=== PATIENT | male | born 1975 | race African-American/Black ===

== ENCOUNTER 2020-05-06 15:18 | Inpatient (IN) | payer BC, OTHER ==
[~2020-05-06 15:18] MED LIST: Iopamidol-370 76% 500 ML 1 ML ONE
[2020-05-06 16:15] LABS: #Eosinphils 0.1 thou/uL (0.0-0.7); #Lymphocytes 0.7 thou/uL (1.20-3.40); #Monocytes 0.6 thou/uL (0.11-0.59); %Basophils 0.1 % (0.0-1.0); %Eosinophils 0.9 % (0.0-10.0); %Lymphocytes 7.3 % (21.0-51.0); %Monocytes 6.2 % (0.0-10.0); %Neutrophils 85.5 % (42.0-75.0); Hemoglobin 14.6 g/dL (14.0-18.0); Mean Corpuscular HGB CONC 32.2 g/dL (32.0-36.0); Mean Corpuscular Hemoglobin 28.2 pg (27.0-31.0); Mean Corpuscular Volume 87.7 fL (78.0-98.0); Mean Platelet Volume 8.5 fL (7.4-10.4); Platelet Count 255 thou/uL (130-400); Red Blood Cell (RBC) Count 5.18 mill/uL (4.70-6.10); White Blood Cell (WBC) Count 9.4 thou/uL (4.8-10.8)
[2020-05-06] MEDS ORDERED: Ondansetron PF 4 MG/2 ML Vial ONE (16:29)
[2020-05-06] MEDS ORDERED: Ketorolac Tromethamine 30 MG/ML VIAL ONE (16:29)
[2020-05-06 16:38] LABS: ALT (SGPT) 46 U/L (8-55); AST (SGOT) 35 U/L (5-34); Alkaline Phosphatase 96 U/L (40-110); Anion Gap 17 mmol/L (10-20); BUN (Urea Nitrogen) 10 mg/dL (8.9-20.6); Bilirubin, Total 0.4 mg/dL (0.2-1.2); Calc. Creatinine Clearance 0 mL/min (70-130); Calcium 9.6 mg/dL (7.8-10.44); Carbon Dioxide 23 mmol/L (22-29); Chloride 100 mmol/L (98-107); Estimated GFR-MDRD 80; Globulin 4.4 g/dL (2.4-3.5); Glucose 110 mg/dL (70-105); Potassium 4.3 mmol/L (3.5-5.1); Protein, Total 8.4 g/dL (6.0-8.3); Sodium 136 mmol/L (136-145)
[2020-05-06] MEDS ORDERED: Metoclopramide HCl 10 MG/2 ML VIAL ONE (18:25)
[2020-05-06] MEDS ORDERED: diphenhydrAMINE 50 MG/ML VIAL ONE (18:25)
[2020-05-06] MEDS ORDERED: cefTRIAXone\\ROCEPHIN 2 GM VIAL ONE (18:44)
[2020-05-06] MEDS ORDERED: Azithromycin 500 MG VIAL ONE (18:44)
[2020-05-06] MEDS ORDERED: Acetaminophen 500 MG TAB ONE ×2 (18:44→18:49)
--- NOTE | 2020-05-06 19:38 | CT ---
CT ANGIO OF CHEST PERFORMED WITH INTRAVENOUS CONTRAST ENHANCEMENT WITH 3D RECONSTRUCTIONS: History: Cough, bronchitis, negative Covid test on Wednesday. FINDINGS: There is an area of moderate consolidation in the left lower lobe. There is also a small infiltrate w ithin the right lower lobe. These changes are not typical for Covid and could just represent more of a bacterial process. The thoracic aorta is normal in caliber. There is suboptimal pulmonary artery opacification. I do not see any signs of any central pulmonary embolus. Smaller peripheral emboli would be difficult to excl ude. Visualized liver parenchyma shows hypodensities. It is difficult to characterize but possibly cysts. One of the larger areas is in the left lobe and does have cyst numbers. The adrenal glands appear sae ewhat hyperplastic. Visualized kidneys are unremarkable. IMPRESSION: 1. No CT evidence for pulmonary embolus. 2. Fairly extensive area of left lower lobe pneumonia with some lesser changes in the right lower lob e. POS: [facility]
[2020-05-06] MEDS ORDERED: Bisacodyl 10 MG SUPP PR PRN (22:41)
[2020-05-06] MEDS ORDERED: Senokot S 8.6-50 MG TAB PO PRN (22:41)
[2020-05-06] MEDS ORDERED: Albuterol 200 PUFF (6.7GM INHALER) INH PRN (22:41)
[2020-05-06] MEDS ORDERED: Guaifenesin DM 100-10/5 ML UDCUP PO PRN (22:41)
[2020-05-06] MEDS ORDERED: Calcium Carbonate 500 MG ChewTAB PO PRN (22:41)
[2020-05-06] MEDS ORDERED: Ondansetron PF 4 MG/2 ML Vial IVP PRN (22:41)
[2020-05-06] MEDS ORDERED: Azithromycin 500 MG in Sodium Chloride 0.9% 250 ML 250 ML IVPB SCH (22:45)
--- NOTE | 2020-05-06 23:15 | HP ---
REASON FOR ADMISSION: Pneumonia, possible COVID. HISTORY OF PRESENTING ILLNESS: The patient gives history of fever, which started on . He had a sore throat and body aches. The patient in fact had come to ER three times once on , then , and now again. He has had a throat swab for strep, which was negative. Flu antigens were negative, and a COVID test done on the was negative as well. On the , he was given a prescription for starting amoxicillin, but the patient has not initiated on that. He has cough with expectoration of bloody sputum. He says his sputum is red and not of any other color. He has mild shortness of breath on exertion. No obvious exposures for COVID in the immediate family or friends as far as he knows. He is a delivery truck driver heavy. PAST MEDICAL AND SURGICAL HISTORY: Hypertension, obesity, GERD, and dyslipidemia. No prior surgical history. CURRENT MEDICATIONS: The patient is on: 1. Metoprolol with hydrochlorothiazide 25/12.5 mg daily. 2. Norvasc 5 mg daily. ALLERGIES: NO KNOWN DRUG ALLERGIES. PERSONAL HISTORY: Smokes cigars one a day. Drinks alcohol on the weekends. No street drugs. Lives with his . Works as a delivery truck driver heavy. FAMILY HISTORY: Father in his 50s from diabetes and its complications. Mother is alive. CODE STATUS: Full. Power of admitted attorneys is his . REVIEW OF SYSTEMS: CONSTITUTIONAL: Negative for weight loss or gain, ability to conduct usual activities. SKIN: Negative for rash, itching. EYES: Negative for double vision, pain. ENT/MOUTH: Negative for nose bleeding, neck stiffness, pain, tenderness. CARDIOVASCULAR: Negative for palpitations, dyspnea on exertion, orthopnea. RESPIRATORY: Negative for shortness of breath, wheezing, cough, hemoptysis, fever or night sweats. GASTROINTESTINAL: Negative for poor appetite, abdominal pain, heartburn, nausea , vomiting, constipation, or diarrhea. GENITOURINARY: Negative for urgency, frequency, dysuria, nocturia. MUSCULOSKELETAL: Negative for pain, swelling. NEUROLOGIC/PSYCHIATRIC: Negative for anxiety, depression. ALLERGY/IMMUNOLOGIC: Negative for skin rash, bleeding tendency. PHYSICAL EXAMINATION: GENERAL: The patient is a 44-year-old male, who is currently not in any acute distress. VITAL SIGNS: Blood pressure 146/90, pulse 110 per minute, respiratory rate 18 per minute, temperature 102.9 degrees Fahrenheit, and saturating 97% on room air. NECK: Supple. No elevated JVD. HEENT: Eyes; extraocular muscles intact. Pupils reacting to light. Oral cavity, mucous membranes are moist. No exudates or congestion. CARDIOVASCULAR SYSTEM: S1 and S2 heard. Regular rhythm. RESPIRATORY: Air entry 1+ bilateral. Scattered rhonchi plus. ABDOMEN: Soft. Bowel sounds heard. No tenderness, rigidity, or guarding. EXTREMITIES: No peripheral edema or calf tenderness. VASCULAR SYSTEM: Peripheral pulses 1+ bilateral. No ischemic ulcerations or gangrene. CENTRAL NERVOUS SYSTEM: No gross focal deficits noted. The patient is alert, awake, and oriented well. PSYCHIATRIC SYSTEM: The patient's mood is euthymic. No hallucinations or delusions. LABORATORY DATA: CT of angio chest done shows no evidence of PE. There is extensive left lower lobe pneumonia. CRP 27, serum glucose 110, lactic acid 1.2 , BUN 10, creatinine 1.1. Albumin is 4. Electrolytes stable. White count of 9, hemoglobin and hematocrit of 14 and 45, platelet count 255, with 85% neutrophils , 7% lymphocytes. CLINICAL IMPRESSION AND PLAN: The patient will be admitted to medical floor for pneumonia, possible COVID. The patient has history of hypertension and is obese as well. He likely might have underlying obstructive sleep apnea, which has not been tested so far. He has been initiated on Zithromax and ceftriaxone, we will continue the same. A COVID-19 PCR has been obtained in the ER, we will follow up on the results. We will continue on his home dose of Lopressor and Norvasc. Albuterol nebulizer q.6 hourly p.r.n. He will be on airborne and droplet precautions. We will continue to closely monitor him on medical floor. Pulmonology consultation with Dr. Maurizio Liang will be obtained. Job ID: [id number] MTDD
[2020-05-07] MEDS: Acetaminophen 325 MG TAB PO PRN ×3 (00:18→18:19)
[2020-05-07] MEDS: Ibuprofen 200 MG TAB PO PRN ×3 (02:26→22:51)
[2020-05-07 04:08] VITALS: BMI 36.3
[2020-05-07 05:57] LABS: #Eosinphils 0.1 thou/uL (0.0-0.7); #Lymphocytes 1.2 thou/uL (1.20-3.40); #Monocytes 0.8 thou/uL (0.11-0.59); #Neutrophils 8.7 thou/uL (1.40-6.50); %Basophils 0.2 % (0.0-1.0); %Eosinophils 0.5 % (0.0-10.0); %Lymphocytes 11.1 % (21.0-51.0); %Monocytes 7.3 % (0.0-10.0); Hemoglobin 12.5 g/dL (14.0-18.0); Mean Corpuscular Hemoglobin 27.5 pg (27.0-31.0); Mean Platelet Volume 8.7 fL (7.4-10.4); Platelet Count 252 thou/uL (130-400); Red Blood Cell (RBC) Count 4.55 mill/uL (4.70-6.10); White Blood Cell (WBC) Count 10.8 thou/uL (4.8-10.8)
[2020-05-07 06:14] LABS: Anion Gap 13 mmol/L (10-20); BUN (Urea Nitrogen) 11 mg/dL (8.9-20.6); Calc. Creatinine Clearance 154 mL/min (70-130); Calcium 8.6 mg/dL (7.8-10.44); Carbon Dioxide 24 mmol/L (22-29); Chloride 104 mmol/L (98-107); Estimated GFR-MDRD Greater than 90; Glucose 117 mg/dL (70-105); Potassium 3.9 mmol/L (3.5-5.1); Sodium 137 mmol/L (136-145)
[2020-05-07] MEDS: Metoprolol Tartrate 25 MG TAB PO SCH ×2 (08:53→19:49)
[2020-05-07] MEDS: Enoxaparin Sodium 40 MG/0.4 ML SYRINGE SC SCH (08:53)
[2020-05-07] MEDS ORDERED: Amlodipine 5 MG TAB PO SCH (09:00)
[2020-05-07] MEDS ORDERED: Prevnar 13-Val Conj/PF 0.5 ML SYRINGE IM ONE (09:00)
[2020-05-07 13:50] LABS: SARS-CoV-2 MS2 Positive; SARS-CoV-2 N Gene Negative; SARS-CoV-2 S Gene Negative; SARS-CoV-2 orf1ab Negative
[2020-05-07] MEDS ORDERED: cefTRIAXone\\ROCEPHIN 1 GM in Sodium Chloride 0.9% 100 ML IVPB SCH (20:00)
--- NOTE | 2020-05-07 20:04 | CON ---
DATE OF CONSULTATION: 05/07/2020 CONSULTING PHYSICIAN: Dr. Nettles. REASON FOR CONSULTATION: Pneumonia. CHIEF COMPLAINT: Fever, cough. HISTORY OF PRESENT ILLNESS: Mr. Limon is a 44-year-old male, who became sick last with a fever of 103.7. He said he was seen several times as an outpatient. He had COVID testing performed in [place], which was negative. He was given a shot of antibiotics, which I presume was probably Rocephin. He felt better for short time, but then had recurrence of fever and his brought him to this facility for further treatment. It should be noted that he is also tested negative for COVID on this admission. PAST MEDICAL HISTORY: Remarkable for hypertension, obesity, gastroesophageal reflux, and hyperlipidemia. PAST SURGICAL HISTORY: None. MEDICATIONS: 1. Metoprolol. 2. Hydrochlorothiazide. 3. Norvasc. ALLERGIES: NONE. SOCIAL HISTORY: He smokes an occasional cigar. Drinks alcohol on the weekends. Does not use illicit drugs. He works as a milk pickup truck driver. FAMILY HISTORY: Remarkable for diabetes in his father. REVIEW OF SYSTEMS: Twelve-point review of systems is otherwise negative except for the fever. PHYSICAL EXAMINATION: VITAL SIGNS: Temperature is 98.1, pulse 81, respirations 16, O2 saturations 96%, blood pressure 138/84. GENERAL: He is awake, alert, pleasant, in no distress. He is on no oxygen. HEENT: Unremarkable. NECK: No adenopathy, JVD, or bruits. CARDIAC: S1 and S2, regular without murmur. LUNGS: He has crackles in left base. Right side clear. He has egophony in left base. ABDOMEN: Soft and nontender. EXTREMITIES: No clubbing, cyanosis, or edema. LABORATORY DATA: COVID test negative. White blood cell count 10.8, hematocrit 39.1, and platelet count 252. Sodium 137, potassium 3.9, chloride 104, CO2 of 24, BUN 11, creatinine 1.1, glucose 117. ASSESSMENT: Community-acquired pneumonia. RECOMMENDATIONS: Ceftriaxone and azithromycin is standard of care and he is on that at this point. If he is doing well tomorrow, then I would suggest converting over to oral equivalents and letting him go home. He will need a followup x-ray in about 3 to 4 weeks. Job ID: [id number]
[2020-05-07] MEDS ORDERED: Azithromycin 500 MG in Sodium Chloride 0.9% 250 ML 250 ML IVPB SCH (21:00)
[2020-05-08] MEDS: Acetaminophen 325 MG TAB PO PRN (07:13)
[2020-05-08] MEDS ORDERED: Metoprolol Tartrate 25 MG TAB PO SCH (09:00)
[2020-05-08] MEDS ORDERED: Amlodipine 5 MG TAB PO SCH (09:00)
[2020-05-08] MEDS: Enoxaparin Sodium 40 MG/0.4 ML SYRINGE SC SCH (09:12)
[2020-05-08 11:52] VITALS: BP 154/92; TEMP 98.5
--- NOTE | 2020-05-08 12:00 | PRG ---
DATE OF SERVICE: 05/08/2020 SUBJECTIVE: The patient is doing reasonably well and has no complaints except for cough. OBJECTIVE: VITAL SIGNS: Temperature 98.6, pulse 83, blood pressure 152/99, and O2 saturation 96% on room air. HEENT: Unremarkable. NECK: No adenopathy or JVD. CHEST: Has crackles in left base. CARDIAC: S1 and S2 regular. ABDOMEN: Soft. EXTREMITIES: No edema. ASSESSMENT: Community-acquired pneumonia. RECOMMENDATIONS: The patient is stable to go home. He needs to be discharged on at least 10 days of antibiotics - I would recommend completing the 5-day course of azithromycin and being on Omnicef for 10 days. He will need a followup x-ray in 3 to 4 weeks through his primary care provider. No further pulmonary recommendations. We will sign off. Job ID: [id number]
--- NOTE | 2020-05-09 00:44 | DIS ---
DATE OF ADMISSION: 05/06/2020 DATE OF DISCHARGE: 05/08/2020 HOSPITAL COURSE: Mr. Limon is a 44-year-old male with medical history of hypertension, who presents with sore throat, diffuse body aches, cough, and fever. He was diagnosed with community-acquired pneumonia. Chest x-ray showed significant left lower lobe consolidation. The patient was treated with azithromycin and ceftriaxone, responded promptly, and was discharged home on levofloxacin to complete an antibiotic treatment of 7 days. He was scheduled to follow up with his primary care physician as well as repeat chest x-ray 6 weeks following the discharge. He was discharged home, hemodynamically stable with no complaints. PHYSICAL EXAMINATION: VITAL SIGNS: Blood pressure 154/92, temperature 98.5, pulse is 73, respiratory rate 16, oxygen saturation 95% on room air. GENERAL APPEARANCE: Sitting comfortably, alert. NECK: No periauricular, submandibular, posterior or anterior lymphadenopathy. HEART: Regular rate and rhythm. No murmurs, gallops, or rubs. LUNGS: Clear to auscultation bilaterally with no wheezing, rales, or rhonchi. Reduced breath sounds in the left lower field. ABDOMEN: Soft, nontender, nondistended. Normal bowel sounds. EXTREMITIES: No edema. PSYCHIATRIC: Proper mood and affect. Alert and oriented x3. MEDICATION LIST: New medication: Levofloxacin 750 mg p.o. daily for 5 additional days to complete a week of antibiotic treatment. Remaining medications were unchanged. Job ID: [id number]
--- NOTE | 2020-05-10 05:24 | PQF ---
HERMINIA CHANG, SY [id number] CLINICAL DOCUMENTATION CLARIFICATION FORM: POST DISCHARGE Addendum to original discharge summary date: ____ Late entry note date: __ DATE:05/10/2020 ATTN: Sy Holder Please exercise your independent, professional judgment in responding to the clarification form. Clinical indicators are provided on the bottom of this form for your review Please check appropriate box(s) to clarify if the following diagnosis has been ruled in or ruled out: Sepsis [ ] Ruled in diagnosis [ ] Continue to treat [ ] Resolved [ x] Ruled out diagnosis [ ] Cannot rule out diagnosis [ ] Other diagnosis [ ] Unable to determine For continuity of documentation, please document condition throughout progress notes and discharge summary. Thank You. CLINICAL INDICATORS - SIGNS / SYMPTOMS / LABS Laboratory 05/06 WBC 9.4, Neutrophils 85.5, Lymphocytes 7.3, Lactic Acid 1.2 Blood Culture 05/07 No growth at 48 hours Vital signs 05/07 BP 145/94, Pulse 118, Resp 19. Temp 102.9 chest X-ray 05/06 Fairly extensive area of LLL Pneumonia ED notes p2 05/06 SIRS Scoring: Pt did meet at least 1 criteria ED notes p10 05/06 Meet criteria of sepsis with fever and tachycardia ED notes p10 05/06 Sepsis, Pneumonia H&P p1 05/06 - Pneumonia RISK FACTORS H&P p1 05/06 HTN H&P p1 05/06 Obesity H&P p1 05/06 Smokes Cigar H&P p1 05/06 - Pneumonia TREATMENTS JAN 18 IV Azithromycin 500 mg JAN 18 IV Rocephin 2 gm JAN 18 IVF NS 1L Blood Culture 05/07 Chest X-ray 05/06 (This form is maintained as a part of the permanent medical record) 2014 [email or web address]. All Rights Reserved [email or web address]
--- NOTE | 2020-05-12 11:24 | EKG ---
Test Reason : Blood Pressure : / mmHG Vent. Rate : 097 BPM Atrial Rate : 097 BPM P-R Int : 166 ms QRS Dur : 072 ms QT Int : 318 ms P-R-T Axes : 036 -16 -01 degrees QTc Int : 403 ms Normal sinus rhythm Minimal voltage criteria for LVH, may be normal variant Confirmed by HALLIE RUSH DO ([id number]), restaurant expeditor KAVIN MCFARLANE ([id number]) on 05/12/2020 11:24:11 AM Referred By: Confirmed By:HALLIE RUSH DO
== END 2020-05-08 13:51 | disposition home or self-care (01) | DRG 195 ==
LOC: ERS 15:18 → T4-B 19:49
PROVIDERS: ADMIT Internal Medicine; ATTEND Internal Medicine
DX: J18.9 Pneumonia, unspecified organism (principal); Z20.828 Contact with and (suspected) exposure to other viral communicable diseases; K21.9 Gastro-esophageal reflux disease without esophagitis; E66.9 Obesity, unspecified; E78.5 Hyperlipidemia, unspecified; I10 Essential (primary) hypertension; F17.290 Nicotine dependence, other tobacco product, uncomplicated; Z68.36 Body mass index [BMI] 36.0-36.9, adult; Z79.899 Other long term (current) drug therapy; Z28.21 Immunization not carried out because of patient refusal
CPT/HCPCS: 36415; 71275; 80048; 80053; 82728; 83605; 85025; 86140; 87040; 87070; 87205; 87635; 87804; 93005; 96361; 96365; 96367; 96368; 96375; J0456; J0696; J1200; J1650; J1885; J2405; J2765; J3490; J7050; Q9967; U0003

== ENCOUNTER 2022-04-27 17:30 | Outpatient (CLI) | payer BC | END 2022-04-27 17:31 | disposition home or self-care (01) | LOC: SLEEPLAB 17:30 | PROVIDERS: ATTEND Internal Medicine Critical Care Medicine | DX: G47.33 Obstructive sleep apnea (adult) (pediatric) (principal); R53.83 Other fatigue; R09.89 Other specified symptoms and signs involving the circulatory and respiratory systems; R06.83 Snoring; E11.9 Type 2 diabetes mellitus without complications; I10 Essential (primary) hypertension; G47.00 Insomnia, unspecified; R06.02 Shortness of breath; E66.9 Obesity, unspecified; Z68.35 Body mass index [BMI] 35.0-35.9, adult | CPT/HCPCS: 95800 ==